=== PATIENT | male | born 1975 | race Caucasian/White ===

== ENCOUNTER 2020-11-28 09:36 | Emergency (ER) | payer SELFPAY ==
[~2020-11-28 09:36] MED LIST: ALDACTONE 25MG25 MG PO; COZAAR 50MG TAB50 MG PO; FUROSEMIDE40 MG PO; LOPRESSOR 25 MG25 MG PO; VENTOLIN HFA 66.7 GM INH
== END 2020-11-28 12:14 | disposition home or self-care (01) ==
LOC: ER1 09:36
DX: R50.9 Fever, unspecified (principal); R52 Pain, unspecified; I10 Essential (primary) hypertension; F17.200 Nicotine dependence, unspecified, uncomplicated; Z20.822 Contact with and (suspected) exposure to COVID-19
CPT/HCPCS: 99283; U0002